=== PATIENT | female | born 1955 | race Caucasian/White ===

== ENCOUNTER → 2016-06-23 | Outpatient (CLI) | payer OTHER ==
--- NOTE | 2016-06-23 14:44 | DIAGNOSTIC IMAGING REPORT ---
ULTRASOUND OF THE THYROID GLAND CLINICAL HISTORY: Nontoxic multinodular goiter. COMPARISON STUDY: No priors. TECHNIQUE: Real-time, grayscale, and color flow sonography of the thyroid gland is performed utilizing a high-frequency linear transducer. Images are reviewed in the transverse and longitudinal planes. FINDINGS: Right lobe: The right lobe of the thyroid gland is enlarged and heterogeneous in echotexture, measuring 6.0 x 2.3 x 3.6 cm. The entire lobe appears hyperemic. A dominant solid and cystic nodule in the right lobe measures 4.1 x 2.3 x 3.1 cm. Internal flow shown on color imaging. Left lobe: The left lobe of the thyroid gland is top normal in size and heterogeneous in echotexture, measuring 5.6 x 1.1 x 1.6 cm. The entire lobe appears hyperemic. There are numerous subcentimeter hypoechoic nodules. A nodule in the posterior midpole measures 0.9 x 0.6 x 0.8 cm. Nodules in the lower pole measure 0.4 x 0.4 x 0.7 cm and 1.1 x 0.6 x 0.9 cm . Isthmus: The thyroid isthmus is normal in appearance and measures 0.5 cm in AP diameter. IMPRESSION: 1. The thyroid gland appears heterogeneous in echotexture and hyperemic. The appearance suggests thyroiditis. Correlation with serum thyroid function studies will be required. 2. A dominant nodule in the right lobe measures up to 4.1 cm. If not previously performed, fine-needle aspiration is recommended based on size criteria. 3. Additional nodules as above. Electronically signed by: Juan J Crum M.D. 06/23/2016 2:42 PM Dictated Date/Time: 06/23/2016 2:40 PM
--- NOTE | 2016-06-23 15:29 | DIAGNOSTIC IMAGING REPORT ---
LATERAL SPINAL RADIOGRAPH CLINICAL HISTORY: Osteoporosis. FINDINGS: A lateral view of the spine is presented. No prior studies are available for comparison at the time of dictation. The skeletal structures are osteopenic. Vertebral body height and alignment appear maintained throughout the spine. There is preservation of the natural cervical lordosis, thoracic kyphosis, lumbar lordosis, and sacral kyphosis. There is no radiographic evidence of fracture on this single lateral projection. Small anterior osteophytic are noted throughout the thoracic spine. No significant degenerative disc disease is observed. IMPRESSION: Vertebral body height and alignment appear maintained throughout the spine. See above. Electronically signed by: Juan J Crum M.D. 06/23/2016 3:28 PM Dictated Date/Time: 06/23/2016 3:27 PM
== END | disposition home or self-care (01) ==
LOC: C.ULTR 14:14
PROVIDERS: ATTEND Internal Medicine Endocrinology, Diabetes & Metabolism
DX: M81.0 Age-related osteoporosis without current pathological fracture (principal); E04.1 Nontoxic single thyroid nodule

== ENCOUNTER → 2016-06-29 | Outpatient (CLI) | payer OTHER | END | disposition home or self-care (01) | LOC: C.LAB 11:26 | PROVIDERS: ATTEND Internal Medicine Endocrinology, Diabetes & Metabolism | DX: E83.52 Hypercalcemia (principal); E04.2 Nontoxic multinodular goiter; M81.0 Age-related osteoporosis without current pathological fracture ==

== ENCOUNTER → 2016-12-21 | Outpatient (CLI) | payer OTHER | END | disposition home or self-care (01) | LOC: C.LAB 12:13 | PROVIDERS: ATTEND Internal Medicine Endocrinology, Diabetes & Metabolism | DX: M81.0 Age-related osteoporosis without current pathological fracture (principal) ==

== ENCOUNTER → 2017-03-01 | Outpatient (CLI) | payer OTHER | END | disposition home or self-care (01) | LOC: C.PAPS 16:30 | PROVIDERS: ATTEND Obstetrics & Gynecology | DX: Z12.4 Encounter for screening for malignant neoplasm of cervix (principal) ==

== ENCOUNTER → 2017-05-25 | Outpatient (CLI) | payer OTHER ==
--- NOTE | 2017-05-25 14:41 | MAMMOGRAPHY REPORT ---
BILATERAL DIGITAL SCREENING MAMMOGRAM TOMOSYNTHESIS WITH CAD: 05/25/2017 CLINICAL HISTORY: Routine screening. Patient has no complaints. TECHNIQUE: Breast tomosynthesis in addition to standard 2D mammography was performed. Current study was also evaluated with a Computer Aided Detection (CAD) system. COMPARISON: Comparison is made to exams dated: 03/25/2016 mammogram - [facility], 09/19/2014 mammogram, 09/07/2013 mammogram, and 08/17/2012 mammogram. BREAST COMPOSITION: The tissue of both breasts is heterogeneously dense, which may obscure small mas ses. FINDINGS: No suspicious masses, calcifications, or areas of architectural distortion are noted in ei ther breast. There has been no significant interval change compared to prior exams. Bilateral subpec inga saline implants are stable in appearance. IMPRESSION: ACR BI-RADS CATEGORY 2: BENIGN There is no mammographic evidence of malignancy. A 1 year screening mammogram is recommended. The pa tient will receive written notification of the results. Approximately 10% of breast cancers are not detected with mammography. A negative mammographic report should not delay biopsy if a clinically suggestive mass is present. Eli Myles M.D. /:05/25/2017 13:52:26 Cpa Tax: Daisha LEUNG(Sreedhar)(Robert)(BD), [facility] letter sent: Normal 1/2 BI-RADS Code: ACR BI-RADS Category 2: Benign
== END | disposition home or self-care (01) ==
LOC: C.MAMM 12:20
PROVIDERS: ATTEND Obstetrics & Gynecology
DX: Z12.31 Encounter for screening mammogram for malignant neoplasm of breast (principal)